=== PATIENT | male | born 1960 | race Caucasian/White ===

== ENCOUNTER 2019-12-20 16:47 | Emergency (ER) | payer OTHER, SELFPAY ==
[2019-12-20 17:02] VITALS: BP 120/84; PULSE 98; RESP 18; TEMP 37; O2SAT 99; BMI 31.0
--- NOTE | 2019-12-20 17:18 | HMH.EDUTC ---
[facility] [place] Disposition Clinical Impression: Impacted cerumen of both ears Disposition: Home, Self-Care Condition on Discharge: Good Instructions: DI for Cerumen Impaction, Cerumen Impaction Additional Instructions: Use the ear drops as directed. Follow up with your primary care physician. Prescriptions: Neomycin/Polymyxin B Sulf/Hc [Soyedtab-Weosupgbp-ZB Otic Susp 10mL] 3 drops EAR-RIGHT TID 7 Days #1 bottle Transmission Status: Pending to [id number] Referrals: Parker Sequeira [Primary Care Provider] - Time of Disposition: 17:57 Medical Decision Making - Medical Records Medical records reviewed: No: I reviewed the patient's medical records. - Fabian Inquiry Pt receiving controlled substance: No Vital Signs: 12/20/19 17:02 Temperature 98.6 F Temperature Source Oral Pulse Rate [Right Brachial] 98 H Respiratory Rate 18 Blood Pressure [Right Arm] 120/84 Blood Pressure Mean [Right Arm] 96 Blood Pressure Source [Right Arm] Automatic Cuff Blood Pressure Position [Right Arm] Sitting 02 Sat by Pulse Oximetry 99 Oxygen Delivery Method Room Air [facility] [place] HPI - General Stated complaint: Ear pain Time Seen by Provider: 12/20/19 17:18 Mode of Arrival: Ambulatory Source of Information: Patient Limitations: No Limitations Description of Symptoms (Recalled from Triage Doc. by RN): PATIENT C/O BILATERAL EAR PAIN X 2 WEEKS HEENT Symptoms (Recalled from RN notes): Yes Resp Symptoms (Recalled from RN notes): No Skin Symptoms (Recalled from RN notes): No MS Symptoms (Recalled from RN notes): No Functional Status (Recalled from RN notes): WNL - History of Present Illness Provider Complaint: He reports bilateral ear fullness and decreased hearing. He thinks that his ears might be stopped up with wax. - Related Data Previous Rx's Medication Instructions Recorded Neomycin/Polymyxin B Sulf/Hc 3 drops EAR-RIGHT TID 7 Days #1 12/20/19 [Rhauqunu-Bnaxkivqj-FP Otic Susp bottle 10mL] Allergies Allergy/AdvReac Type Severity Reaction Status Date / Time No Known Allergies Allergy Verified 12/20/19 17:05 - Worker's Comp Is this a Worker's Comp case?: No [facility] History - Hepatitis A Screen Drug use history?: No High risk sexual behaviors?: No History of sexually transmitted infection?: No Currently employed?: No Childcare worker?: No Do you have indoor plumbing?: Yes Do you have electricity?: Yes Attestation statement:: This patient has been screened for Hepatitis A risk factors. I have reviewed the patient's past medical history: Yes - Social History Alcohol Intake: never Occupational Status: other ROS Obtained: Yes All systems reviewed & no additional complaints - Constitutional Constitutional: Denies chills, Denies fever(s) - ENT Ears, Nose, Mouth, and Throat: Reports as per HPI - Cardiovascular Cardiovascular: Denies chest pain Physical Exam - General General appearance: alert, in no apparent distress - Head Head exam: atraumatic, normocephalic, normal inspection - Eye Eye exam: Present: normal appearance, PERRL, EOMI - ENT ENT exam: Present: normal exam, normal oropharynx, mucous membranes moist, normal external ear exam - Expanded ENT Exam TM/Canal exam: Bilateral TM: cerumen impaction - Neck Neck exam: Present: normal inspection, full ROM, trachea midline. Absent: meningismus, lymphadenopathy - Chest Chest inspection: Present: normal inspection, symmetric chest wall rise. Absent: tenderness - Respiratory Respiratory exam: Present: normal lung sounds bilaterally. Absent: respiratory distress - Cardiovascular Cardiovascular exam: Present: regular rate, normal rhythm. Absent: JVD - Abdominal Exam Abdominal exam: Present: soft, normal bowel sounds. Absent: distention, tenderness, guarding - Extremities Exam Extremities exam: Present: normal inspection, full ROM, normal capillary refill. Absent: calf tenderness - Back Exam Back exam: Present: normal
[2019-12-20 17:59] VITALS: BP 120/84; PULSE 98; RESP 18; TEMP 37; O2SAT 99
== END 2019-12-20 18:00 | disposition home or self-care (01) ==
PROVIDERS: Emergency Provider Nurse Practitioner Family; PCP Internal Medicine
DX: H92.03 Otalgia, bilateral (principal); H61.23 Impacted cerumen, bilateral
CPT/HCPCS: 99201

== ENCOUNTER 2020-01-04 16:57 | Emergency (ER) | payer OTHER, SELFPAY ==
[2020-01-04 17:03] VITALS: BP 123/99; PULSE 101; RESP 18; TEMP 36.6; O2SAT 99; BMI 30.4
--- NOTE | 2020-01-04 17:15 | HMH.EDUTC ---
[facility] [place] Clinical Impression: Sinusitis Qualifiers: Sinusitis location: unspecified location Chronicity: unspecified Qualified Code(s): J32.9 - Chronic sinusitis, unspecified Disposition: Home, Self-Care Condition on Discharge: Good Instructions: Sore Throat, Fluticasone Nasal [place], Sinusitis, Sinus Headache, DI for Sinusitis, DI for Viral Upper Respiratory Infection -- Adult Additional Instructions: *Monitor Temp, Over the counter Motrin or Tylenol as directed/as needed Tylenol every 4 hours and Motrin every 6 hours (as long as your family doctor has told you that you can take it) for fever or pain. and straight to ER if unable to lower temp less than 101.0 after medication given *Warm salt water gargles may help to soothe the throat *Throat Lozenges *Warm fluids like tea with honey may help to soothe the throat *Sleep elevated *Humidifier/Vaporizer *Flonase 2 sprays in each nostril daily but be aware that it may take 2-3 days before you notice improvement Follow up IMMEDIATELY for new or worsening symptoms or no Noticeable improvement over the next 48-72 hours. 911 for difficulty breathing or swallowing You was tested for today for COVID19 your test result should be back later this evening, you may call back later this evening to see if your test results are back and the result You was given a handout with instructions for Self Quarantine and Self isolation for while you wait on test results and what to do if they are positive Prescriptions: Fluticasone Propionate [Flonase 50mcg nasal spray 16gm] 1 - 2 spr NS DAILY #1 bottle Transmission Status: Pending to [facility] Azithromycin [Z-Elpidio 250mg Tab] 250 mg PO DIRECTED #6 tab Transmission Status: Pending to [facility] Referrals: Jesse Sequeira [Primary Care Provider] - As needed Time of Disposition: 17:27 Medical Decision Making - Fabian Inquiry Pt receiving controlled substance: No Fabian was queried for this patient: No Vital Signs: 01/04/20 17:03 Temperature 97.9 F Temperature Source Oral Pulse Rate [Radial] 101 H Respiratory Rate 18 Blood Pressure [Right Arm] 123/99 H Blood Pressure Mean [Right Arm] 107 Blood Pressure Source [Right Arm] Automatic Cuff Blood Pressure Position [Right Arm] Sitting 02 Sat by Pulse Oximetry 99 Oxygen Delivery Method Room Air Orders (Tests/Meds): ORDERS Category Date Time Status Covid-19 Nasal PCR ([facility]) Routine Lab 01/04/20 17:10 Received [facility] [place]PI - General Stated complaint: cough,ATWOOD,, head congestion Time Seen by Provider: 01/04/20 17:15 Mode of Arrival: Ambulatory Source of Information: Patient Limitations: No Limitations Description of Symptoms (Recalled from Triage Doc. by RN): chills, cough, sore throat. HEENT Symptoms (Recalled from RN notes): Yes Resp Symptoms (Recalled from RN notes): No Skin Symptoms (Recalled from RN notes): No MS Symptoms (Recalled from RN notes): No Functional Status (Recalled from RN notes): wnl - History of Present Illness Provider Complaint: Patient states that he is concerned he may have been exposed to COVID states that yesterday he felt worse with nasal congestion, sinus pain and pressure, cough chills and body aches States that today he is feeling a little better but wanted to get checked States that he had a low grade fever yesterday and feels like it is draining in the back of his throat and has been staying with family and wanted to get checked States that he has a history of sinusitis - Related Data Previous Rx's Medication Instructions Recorded Neomycin/Polymyxin B Sulf/Hc 3 drops EAR-RIGHT TID 7 Days #1 12/20/19 [Bpmushbh-Djrxiytxy-BE Otic Susp bottle 10mL] Azithromycin [Z-Elpidio 250mg Tab] 250 mg PO DIRECTED #6 tab 01/04/20 Fluticasone Propionate [Flonase 1 - 2 spr NS DAILY #1 bottle 01/04/20 50mcg nasal spray 16gm] Allergies Allergy/AdvReac Type Severity Reaction Status Date / Time No Known Allergies Allergy V
[2020-01-04 17:39] VITALS: BP 123/99; PULSE 101; RESP 18; TEMP 36.6; O2SAT 99
== END 2020-01-04 17:41 | disposition home or self-care (01) ==
PROVIDERS: Emergency Provider Nurse Practitioner; PCP Pediatrics
DX: J32.9 Chronic sinusitis, unspecified (principal); Z20.828 Contact with and (suspected) exposure to other viral communicable diseases
CPT/HCPCS: 99201; U0003

== ENCOUNTER 2022-05-05 17:20 | Emergency (ER) | payer OTHER, SELFPAY ==
[2022-05-05 17:25] VITALS: BP 115/86; PULSE 81; RESP 20; TEMP 37; O2SAT 98; BMI 28.1
[2022-05-05 17:33] VITALS: BP 115/86; PULSE 81; RESP 20; TEMP 37; O2SAT 98
--- NOTE | 2022-05-05 17:34 | EXP.UTC ---
Discharge Plan Disposition Patient Disposition: Home, Self-Care Condition: Good Prescriptions Prescriptions: New amoxicillin [amoxicillin] 875 mg tablet 875 mg PO Q12H Qty: 20 0RF methylprednisolone 4 mg Tablets,Dose Pack 4 mg PO DIRECTED Qty: 21 0RF guaifenesin [Mucinex] 600 mg tablet extended release 12hr 600 - 1,200 mg PO BIDP PRN (Reason: Congestion) Qty: 30 0RF No Action uougcqqk-afujlfpos-VY 10 ML bottle 3 drops EAR-RIGHT TID 7 Days Qty: 1 0RF fluticasone propionate 120 SPR/BOT bottle 1 - 2 spr NS DAILY Qty: 1 0RF Rx Instructions: each nostril daily azithromycin 250 MG tablet 250 mg PO DIRECTED Qty: 6 0RF Rx Instructions: Take two (2) tablets on day #1, then one (1) tablet day #2 thru #5 Referrals Follow up/Referrals: Jesse Sequeira [Primary Care Provider] - See instructions Activity Restrictions/Add. Instructions Additional Instructions/Restrictions: Drink plenty of fluids. Take tylenol or ibuprofen for pain or fever. Take the medications as directed. Follow up with your regular doctor. GO TO THE ER FOR ANY WORSENING SYMPTOMS Clinical Impressions Clinical Impression: Otitis media, Sinusitis Instructions Patient Instructions: Middle Ear Infection, DI for Sinusitis Discharge ED Provider: Hany Molina [facility] General Stated complaint: Cough,Fever,ear pain Mode of Arrival: Ambulatory Source of Information: Patient Limitations: No Limitations Time Seen by Provider: 05/05/22 17:34 Description of Symptoms (Recalled from Triage Doc. by RN): PATIENT C/O EAR PAIN WITH DECREASED HEARING SINCE THURSDAY HEENT Symptoms (Recalled from RN notes): Yes Resp Symptoms (Recalled from RN notes): No Skin Symptoms (Recalled from RN notes): No MS Symptoms (Recalled from RN notes): No Functional Status (Recalled from RN notes): WNL History of Present Illness Provider Complaint: She c/o bilateral ear pain and decreased hearing for the past 3 days. Related Data Previous Rx's Medication Instructions Recorded txabhxum-nysotxyus-nqhdexzfs 3.5 3 drops EAR-RIGHT TID 7 days ##1 12/20/19 mg-10,000 unit/mL-1 % ear drops,susp azithromycin 250 mg tablet 250 mg PO DIRECTED #6 tabs 01/04/20 fluticasone propionate 50 1 - 2 spr NS DAILY ##1 01/04/20 mcg/actuation nasal spray,suspension amoxicillin 875 mg tablet 875 mg PO Q12H #20 tabs 05/05/22 guaifenesin 600 mg tablet, 600 - 1,200 mg PO BIDP PRN 05/05/22 extended release 12 hr (Mucinex) Congestion #30 tabs methylprednisolone 4 mg tablets in 4 mg PO DIRECTED #21 tabs 05/05/22 a dose pack Allergies Allergy/AdvReac Type Severity Reaction Status Date / Time No Known Allergies Allergy Verified 12/20/19 17:05 Worker's Comp Is this a Worker's Comp case?: No [facility] Disclaimer: The information contained in this section may have been updated after the patient was seen, as this information can be updated by other users. Medical History Epilepsy Social History Smoking Status: Unknown if ever smoked alcohol intake: never current occupational status: other Travel in the last 8 weeks: None ROS Obtained: Yes All systems reviewed & no additional complaints except as documented Constitutional Constitutional: Denies chills, Reports fever(s) and Reports poor appetite Eyes Eyes: Denies eye discharge ENT Ears, Nose, Mouth, and Throat: Denies ear discharge, Reports otalgia, Denies hearing loss, Denies sinus pain and Reports sore throat Cardiovascular Cardiovascular: Denies chest pain and Denies dyspnea Respiratory Respiratory: Denies chest congestion, Reports cough and Denies dyspnea Gastrointestinal Gastrointestingal: Denies abdominal pain, diarrhea, nausea or vomiting Musculoskeletal Musculoskeletal: Denies arthralgias Integumentary/Breasts Skin/Breast: Denies rash Physical Exam
== END 2022-05-05 18:20 | disposition home or self-care (01) ==
PROVIDERS: Emergency Provider Nurse Practitioner Family; PCP Pediatrics
DX: H66.90 Otitis media, unspecified, unspecified ear (principal); J32.9 Chronic sinusitis, unspecified
CPT/HCPCS: 99212; 99213; G0463